=== PATIENT | male | born 1985 | race Caucasian/White ===

== ENCOUNTER → 2023-04-11 | Outpatient (CLI) | payer BC ==
[~2023-04-11] MED LIST: ATARAX,VISTARIL50 MG PO; BENADRYL50 MG PO; CARBIDOPA/LEVOD1 TA1 PO; KEFLEX500 MG PO; PREDNISONE10 MG PO; VICODIN 5/500 505 MG PO; VICODIN ES 7501 TAB PO; ZOFRAN 4 MG ED2 TAB PO
[2023-04-11 14:04] LABS: BASO # 0.1 10*3/uL (0.0-0.1); BASO % 1.5 % (0.0-1.0); EOS # 0.4 10*3/uL (0.0-0.4); EOS % 4.1 % (1.0-4.0); HEMATOCRIT 47.6 % (42.0-52.0); LYMPH # 1.8 10*3/uL (1.3-4.4); LYMPH % 20.8 % (27.0-41.0); MEAN CORPUSCULAR HGB 29.6 pg (27.0-31.0); MEAN CORPUSCULAR HGB CONC 32.6 g/dl (33.0-37.0); MEAN PLATELET VOLUME 8.7 fl (9.6-12.3); MONO # 0.6 10*3/uL (0.1-1.0); MONO % 7.3 % (3.0-9.0); NEUT # 5.7 10*3/uL (2.3-7.9); PLATELET COUNT AUTOMATED 362 10*3/uL (130-400); RED BLOOD COUNT 5.23 10*6/uL (4.50-5.90); RED CELL DISTRI WIDTH 12.1 % (0-14.5); WHITE BLOOD COUNT 8.7 10*3/uL (4.8-10.8)
[2023-04-11 14:23] LABS: ALKALINE PHOSPHATASE 119 U/L (46-116); BUN 13 mg/dl (9-23); CHLORIDE 105 mmol/L (98-107); CHOLESTEROL 200 mg/dL (<200); FREE T4 0.92 ng/dl (0.89-1.76); LDL CHOLESTEROL 119 mg/dL (9-159); POTASSIUM 4.4 mmol/L (3.4-5.1); SGPT/ALT 24 U/L (5-49); TOTAL PROTEIN 6.9 gm/dL (6.0-8.0); TRIGLYCERIDES 179 mg/dl (<150); VITAMIN D, 25-HYDROXY 22.5 ng/mL (30-100)
== END | disposition home or self-care (01) ==
LOC: LAB 13:20
PROVIDERS: ATTEND Internal Medicine
DX: Z00.00 Encounter for general adult medical examination without abnormal findings (principal); Z13.0 Encounter for screening for diseases of the blood and blood-forming organs and certain disorders involving the immune mechanism; Z13.1 Encounter for screening for diabetes mellitus; Z13.21 Encounter for screening for nutritional disorder; Z13.220 Encounter for screening for lipoid disorders; Z13.228 Encounter for screening for other metabolic disorders; Z13.29 Encounter for screening for other suspected endocrine disorder; Z13.6 Encounter for screening for cardiovascular disorders; Z13.89 Encounter for screening for other disorder; Z13.9 Encounter for screening, unspecified; R07.9 Chest pain, unspecified

== ENCOUNTER 2023-07-21 14:36 | Emergency (ER) | payer BC ==
[~2023-07-21] VITALS: Ht 167.6 cm; Wt 77.1 kg
[2023-07-21] MEDS ORDERED: methylPREDNISolone sod succ 125 MG VIAL IM ONE (15:00)
[2023-07-21] MEDS ORDERED: Cyclobenzaprine Hydrochlorid 10 MG TAB PO ONE (15:00)
[2023-07-21] MEDS ORDERED: PREDNISONE20 M1 PO (16:00)
[2023-07-21] MEDS ORDERED: CYCLOBENZAPRINE10 MG PO (16:00)
== END 2023-07-21 16:40 | disposition home or self-care (01) ==
LOC: ED 14:36
DX: M99.79 Connective tissue and disc stenosis of intervertebral foramina of abdomen and other regions (principal); M19.011 Primary osteoarthritis, right shoulder; Z90.89 Acquired absence of other organs; Z98.890 Other specified postprocedural states

== ENCOUNTER → 2023-07-31 | Outpatient (CLI) | payer BC ==
[~2023-07-31] MED LIST changes: +CYCLOBENZAPRINE10 MG PO; +PREDNISONE20 M1 PO
== END | disposition home or self-care (01) ==
LOC: MRI 02:00
PROVIDERS: ATTEND Internal Medicine
DX: M50.31 Other cervical disc degeneration, high cervical region (principal); M50.323 Other cervical disc degeneration at C6-C7 level; M50.322 Other cervical disc degeneration at C5-C6 level; M50.321 Other cervical disc degeneration at C4-C5 level; M25.78 Osteophyte, vertebrae; M48.02 Spinal stenosis, cervical region